=== PATIENT | male | born 1935 | race Caucasian/White ===

== ENCOUNTER 2021-03-02 23:02 | Inpatient (IN) | payer OTHER, MEDICARE ==
[2021-03-02] MEDS ORDERED: hydrALAZINE 20 MG/ML VIAL SLOW IVP PRN (23:29)
[2021-03-02] MEDS ORDERED: Ondansetron PF 4 MG/2 ML Vial IVP PRN (23:29)
[2021-03-02] MEDS ORDERED: Dextrose 5% in Water 1,000 ML IV PRN (23:29)
[2021-03-02] MEDS ORDERED: Dextrose 50% Abboject 50 ML SYRINGE SLOW IVP PRN (23:29)
[2021-03-02] MEDS ORDERED: Ondansetron ODT 4 MG TAB PO PRN (23:29)
[2021-03-02] MEDS ORDERED: traMADol HCl 50 MG TAB PO PRN (23:33)
[2021-03-02 23:35] LABS: #Eosinphils 0.1 thou/uL (0.0-0.7); #Lymphocytes 1.3 thou/uL (1.20-3.40); #Neutrophils 12.8 thou/uL (1.40-6.50); %Basophils 0.3 % (0.0-1.0); %Eosinophils 0.4 % (0.0-10.0); %Lymphocytes 8.2 % (21.0-51.0); %Monocytes 6.8 % (0.0-10.0); %Neutrophils 84.3 % (42.0-75.0); Hemoglobin 13.7 g/dL (14.0-18.0); Mean Corpuscular Volume 91.3 fL (78.0-98.0); Mean Platelet Volume 7.6 fL (7.4-10.4); Platelet Count 412 thou/uL (130-400); RBC Distribution Width 14.2 % (11.5-14.5); Red Blood Cell (RBC) Count 4.41 mill/uL (4.70-6.10); White Blood Cell (WBC) Count 15.2 thou/uL (4.8-10.8)
[2021-03-02] MEDS ORDERED: Morphine 4 MG/ML VIAL SLOW IVP PRN (23:36)
[2021-03-02 23:55] LABS: ALT (SGPT) 19 U/L (8-55); AST (SGOT) 19 U/L (5-34); Albumin 3.1 g/dL (3.4-4.8); Alkaline Phosphatase 90 U/L (40-110); Anion Gap 16 mmol/L (10-20); BUN (Urea Nitrogen) 16 mg/dL (8.4-25.7); Bilirubin, Total 0.6 mg/dL (0.2-1.2); Calc. Creatinine Clearance 0 mL/min (70-130); Calcium 9.2 mg/dL (7.8-10.44); Carbon Dioxide 23 mmol/L (23-31); Chloride 100 mmol/L (98-107); Globulin 3.2 g/dL (2.4-3.5); Glucose 144 mg/dL (83-110); Potassium 3.2 mmol/L (3.5-5.1); Protein, Total 6.3 g/dL (5.8-8.1); Sodium 136 mmol/L (136-145)
[2021-03-03] MEDS ORDERED: Morphine 4 MG/ML VIAL ONE (00:16)
[2021-03-03] MEDS ORDERED: HumaLOG 300 UNITS/3 ML VIAL SC PRN ×2 (00:51)
[2021-03-03 01:32] LABS: SARS-CoV-2 NAA Rapid Test Not Detected (NotDetected)
[2021-03-03 01:47] VITALS: BMI 29.5
[2021-03-03] MEDS: Cyclobenzaprine 10 MG TAB PO PRN ×2 (03:21→22:49)
[2021-03-03] MEDS: Sodium Chloride 0.9% 1,000 ML IV SCH ×2 (03:23→14:02)
[2021-03-03] MEDS: Acetaminophen 500 MG TAB PO SCH ×2 (03:24→04:56)
[2021-03-03] MEDS: Ibuprofen 800 MG TAB PO SCH ×3 (04:57→21:33)
[2021-03-03 05:10] LABS: #Eosinphils 0.1 thou/uL (0.0-0.7); #Lymphocytes 1.3 thou/uL (1.20-3.40); #Monocytes 0.9 thou/uL (0.11-0.59); #Neutrophils 11.9 thou/uL (1.40-6.50); %Basophils 0.1 % (0.0-1.0); %Eosinophils 0.7 % (0.0-10.0); %Lymphocytes 8.9 % (21.0-51.0); %Monocytes 6.2 % (0.0-10.0); %Neutrophils 84.1 % (42.0-75.0); Hemoglobin 13.2 g/dL (14.0-18.0); Mean Corpuscular HGB CONC 33.8 g/dL (32.0-36.0); Mean Corpuscular Hemoglobin 30.6 pg (27.0-31.0); Mean Corpuscular Volume 90.7 fL (78.0-98.0); Mean Platelet Volume 7.8 fL (7.4-10.4); Platelet Count 416 thou/uL (130-400); RBC Distribution Width 14.1 % (11.5-14.5); White Blood Cell (WBC) Count 14.1 thou/uL (4.8-10.8)
[2021-03-03] MEDS: Acetaminophen 325 MG TAB PO SCH ×4 (05:24→22:49)
[2021-03-03 05:43] LABS: Phosphorus 3.5 mg/dL (2.3-4.7)
[2021-03-03 05:47] LABS: Anion Gap 14 mmol/L (10-20); BUN (Urea Nitrogen) 15 mg/dL (8.4-25.7); Calc. Creatinine Clearance 77 mL/min (70-130); Calcium 9.1 mg/dL (7.8-10.44); Carbon Dioxide 26 mmol/L (23-31); Chloride 99 mmol/L (98-107); Glucose 132 mg/dL (83-110); Magnesium 1.8 mg/dL (1.6-2.6); Potassium 3.4 mmol/L (3.5-5.1); Sodium 136 mmol/L (136-145)
[2021-03-03] MEDS ORDERED: Magnesium Sulfate 2 GM in Sodium Chloride 0.9% 100 ML IV SCH (07:45)
[2021-03-03] MEDS ORDERED: Potassium Phosphate 30 MMOL, Magnesium Sulfate 2 GM in Sodium Chloride 0.9% 250 ML IVPB SCH (09:00)
[2021-03-03] MEDS ORDERED: Fentanyl 100 MCG/2 ML VIAL ONE ×2 (09:15→09:40)
[2021-03-03] MEDS ORDERED: Lidocaine 2% Jelly 5 ML TUBE ONE (09:36)
[2021-03-03] MEDS ORDERED: Neomycin-Polymyxin 1 ML AMP ONE (09:39)
[2021-03-03] MEDS ORDERED: CEFAZOLIN 2 GM, Admixture Fee 1 EACH in Sodium Chloride 0.9% 100 ML IVPB SCH (10:00)
[2021-03-03] MEDS ORDERED: SUGAMMADEX SODIUM 200 MG/2 ML VIAL ONE (10:57)
[2021-03-03] MEDS ORDERED: Ondansetron HCl/PF 4 MG/2 ML Vial IVP PRN (11:28)
[2021-03-03] MEDS ORDERED: Morphine Sulfate 2 MG/ML SYRINGE SLOW IVP PRN (11:28)
[2021-03-03] MEDS: Famotidine 20 MG TAB PO SCH ×2 (14:02→20:10)
[2021-03-03] MEDS ORDERED: Magnesium Sulfate 3 GM in Sodium Chloride 0.9% 100 ML IV SCH (15:15)
[2021-03-03] MEDS ORDERED: Ferrous Sulfate 325 MG TAB PO SCH (17:00)
[2021-03-03] MEDS: CEFAZOLIN 2 GM, Admixture Fee 1 EACH in Sodium Chloride 0.9% 100 ML IVPB SCH (18:23)
[2021-03-03 18:40] LABS: Anion Gap 14 mmol/L (10-20); BUN (Urea Nitrogen) 15 mg/dL (8.4-25.7); Calc. Creatinine Clearance 77 mL/min (70-130); Calcium 9.1 mg/dL (7.8-10.44); Carbon Dioxide 27 mmol/L (23-31); Chloride 101 mmol/L (98-107); Glucose 145 mg/dL (83-110); Magnesium 2.2 mg/dL (1.6-2.6); Phosphorus 4.9 mg/dL (2.3-4.7); Potassium 3.5 mmol/L (3.5-5.1); Sodium 138 mmol/L (136-145)
[2021-03-03] MEDS ORDERED: Potassium Chloride 20 MEQ in Premix Bag 1 BAG IVPB SCH (19:00)
[2021-03-03] MEDS ORDERED: Ascorbic Acid 500 mg Chewable Tablet PO SCH (21:00)
[2021-03-04] MEDS: traMADol HCl 50 MG TAB PO PRN ×2 (01:18→10:01)
[2021-03-04] MEDS: CEFAZOLIN 2 GM, Admixture Fee 1 EACH in Sodium Chloride 0.9% 100 ML IVPB SCH (03:31)
[2021-03-04 06:03] LABS: Hemoglobin 9.8 g/dL (14.0-18.0); Mean Corpuscular HGB CONC 30.4 g/dL (32.0-36.0); Mean Corpuscular Hemoglobin 27.8 pg (27.0-31.0); Mean Corpuscular Volume 91.5 fL (78.0-98.0); Mean Platelet Volume 7.7 fL (7.4-10.4); Platelet Count 334 thou/uL (130-400); RBC Distribution Width 14.5 % (11.5-14.5); Red Blood Cell (RBC) Count 3.51 mill/uL (4.70-6.10); White Blood Cell (WBC) Count 12.3 thou/uL (4.8-10.8)
[2021-03-04] MEDS: Acetaminophen 325 MG TAB PO SCH ×2 (06:11→14:37)
[2021-03-04] MEDS: Ibuprofen 800 MG TAB PO SCH ×3 (06:12→16:33)
[2021-03-04 06:24] LABS: Band 11 % (5-11); Eosinophils 2 % (0-10); Hypochromia SLIGHT = 6-15 cells (100X) (0-5/hpf); Lymphocytes 4 % (21-51); MDiff Complete? YES; Monocytes 4 % (0-10); Neutrophil 79 % (42-75); Platelet Morphology Comment Appears Adequate
[2021-03-04 06:40] LABS: Anion Gap 9 mmol/L (10-20); BUN (Urea Nitrogen) 14 mg/dL (8.4-25.7); Calc. Creatinine Clearance 78 mL/min (70-130); Calcium 8.4 mg/dL (7.8-10.44); Carbon Dioxide 30 mmol/L (23-31); Chloride 101 mmol/L (98-107); Glucose 141 mg/dL (83-110); Magnesium 2.1 mg/dL (1.6-2.6); Phosphorus 3.2 mg/dL (2.3-4.7); Potassium 3.3 mmol/L (3.5-5.1); Sodium 137 mmol/L (136-145)
[2021-03-04] MEDS ORDERED: Ferrous Sulfate 325 MG TAB PO SCH (08:00)
[2021-03-04] MEDS ORDERED: Ascorbic Acid 500 mg Chewable Tablet PO SCH (09:00)
[2021-03-04] MEDS ORDERED: Aspirin 81 mg Enteric Coated Tablet PO SCH (09:00)
[2021-03-04 09:12] LABS: #Basophils 0.1 thou/uL (0.0-0.2); #Eosinphils 0.5 thou/uL (0.0-0.7); #Monocytes 0.9 thou/uL (0.11-0.59); #Neutrophils 12.9 thou/uL (1.40-6.50); %Basophils 0.3 % (0.0-1.0); %Eosinophils 3.4 % (0.0-10.0); %Lymphocytes 6.8 % (21.0-51.0); %Monocytes 5.8 % (0.0-10.0); %Neutrophils 83.7 % (42.0-75.0); Mean Corpuscular HGB CONC 33.5 g/dL (32.0-36.0); Mean Corpuscular Hemoglobin 30.9 pg (27.0-31.0); Mean Corpuscular Volume 92.4 fL (78.0-98.0); Platelet Count 370 thou/uL (130-400); RBC Distribution Width 14.2 % (11.5-14.5); Red Blood Cell (RBC) Count 3.56 mill/uL (4.70-6.10); White Blood Cell (WBC) Count 15.4 thou/uL (4.8-10.8)
[2021-03-04] MEDS: Famotidine 20 MG TAB PO SCH (10:01)
[2021-03-04] MEDS: Potassium Chloride 40 MEQ in Sodium Chloride 0.9% 250 ML 250 ML IVPB SCH ×2 (10:02→15:09)
[2021-03-04 16:52] VITALS: BP 158/75; TEMP 97.4
== END 2021-03-04 17:47 | disposition home or self-care (01) | DRG 522 ==
LOC: ERS 23:02 → SURG A 23:29
PROVIDERS: ADMIT Specialist; ATTEND Specialist
PROC: 0SRS0JA Replacement of Left Hip Joint, Femoral Surface with Synthetic Substitute, Uncemented, Open Approach (ICD-10-PCS; principal; 2021-03-03)
DX: S72.002A Fracture of unspecified part of neck of left femur, initial encounter for closed fracture (principal); W19.XXXA Unspecified fall, initial encounter; E78.5 Hyperlipidemia, unspecified; I10 Essential (primary) hypertension; E11.9 Type 2 diabetes mellitus without complications; F03.90 Unspecified dementia, unspecified severity, without behavioral disturbance, psychotic disturbance, mood disturbance, and anxiety; D72.829 Elevated white blood cell count, unspecified; Z20.822 Contact with and (suspected) exposure to COVID-19; Y92.89 Other specified places as the place of occurrence of the external cause; Z79.84 Long term (current) use of oral hypoglycemic drugs; Z79.899 Other long term (current) drug therapy; Z87.891 Personal history of nicotine dependence
CPT/HCPCS: 36415; 36416; 71045; 72170; 80048; 80053; 83735; 84100; 85025; 93005; 93010; 96374; C1776; G0390; J0690; J2270; J3010; J3475; J3480; J3490; J7030; J7050; U0002

== ENCOUNTER 2021-03-09 16:21 | Inpatient (IN) | payer MEDICARE ==
[~2021-03-09 16:21] MED LIST: Iopamidol-370 76% 500 ML 1 ML ONE
[2021-03-09 17:26] LABS: #Eosinphils 0.2 thou/uL (0.0-0.7); #Lymphocytes 1.2 thou/uL (1.20-3.40); #Monocytes 1.4 thou/uL (0.11-0.59); #Neutrophils 9.9 thou/uL (1.40-6.50); %Basophils 0.1 % (0.0-1.0); %Eosinophils 1.7 % (0.0-10.0); %Lymphocytes 9.2 % (21.0-51.0); %Monocytes 10.9 % (0.0-10.0); %Neutrophils 78.2 % (42.0-75.0); Hemoglobin 11.4 g/dL (14.0-18.0); Mean Corpuscular HGB CONC 33.1 g/dL (32.0-36.0); Mean Corpuscular Hemoglobin 30.3 pg (27.0-31.0); Mean Corpuscular Volume 91.6 fL (78.0-98.0); Mean Platelet Volume 7.3 fL (7.4-10.4); Platelet Count 530 thou/uL (130-400); RBC Distribution Width 14.7 % (11.5-14.5); Red Blood Cell (RBC) Count 3.77 mill/uL (4.70-6.10); White Blood Cell (WBC) Count 12.6 thou/uL (4.8-10.8)
[2021-03-09 17:48] LABS: ALT (SGPT) 10 U/L (8-55); AST (SGOT) 23 U/L (5-34); Albumin 2.6 g/dL (3.4-4.8); Alkaline Phosphatase 108 U/L (40-110); Anion Gap 15 mmol/L (10-20); BUN (Urea Nitrogen) 24 mg/dL (8.4-25.7); Bilirubin, Total 1.5 mg/dL (0.2-1.2); Calc. Creatinine Clearance 0 mL/min (70-130); Calcium 8.8 mg/dL (7.8-10.44); Carbon Dioxide 29 mmol/L (23-31); Chloride 97 mmol/L (98-107); Globulin 3.1 g/dL (2.4-3.5); Glucose 114 mg/dL (83-110); Potassium 4.5 mmol/L (3.5-5.1); Protein, Total 5.7 g/dL (5.8-8.1); Sodium 136 mmol/L (136-145)
[2021-03-09] MEDS ORDERED: Ondansetron PF 4 MG/2 ML Vial IVP PRN (19:47)
[2021-03-09] MEDS ORDERED: Dextrose 5% in Water 1,000 ML IV PRN (19:52)
[2021-03-09] MEDS ORDERED: Dextrose 50% Abboject 50 ML SYRINGE SLOW IVP PRN (19:52)
[2021-03-09] MEDS ORDERED: HumaLOG 300 UNITS/3 ML VIAL SC PRN ×2 (19:52)
[2021-03-09] MEDS ORDERED: Acetaminophen 325 MG TAB ONE (20:21)
[2021-03-10 00:35] VITALS: BMI 35.2
[2021-03-10 05:35] LABS: #Eosinphils 0.4 thou/uL (0.0-0.7); #Lymphocytes 1.1 thou/uL (1.20-3.40); #Monocytes 1.2 thou/uL (0.11-0.59); #Neutrophils 8.2 thou/uL (1.40-6.50); %Basophils 0.2 % (0.0-1.0); %Eosinophils 3.3 % (0.0-10.0); %Lymphocytes 10.1 % (21.0-51.0); %Monocytes 11.4 % (0.0-10.0); Hemoglobin 10.7 g/dL (14.0-18.0); Mean Corpuscular HGB CONC 33.5 g/dL (32.0-36.0); Mean Corpuscular Hemoglobin 30.9 pg (27.0-31.0); Mean Corpuscular Volume 92.3 fL (78.0-98.0); Mean Platelet Volume 7.1 fL (7.4-10.4); Platelet Count 521 thou/uL (130-400); RBC Distribution Width 14.7 % (11.5-14.5); Red Blood Cell (RBC) Count 3.46 mill/uL (4.70-6.10); White Blood Cell (WBC) Count 10.9 thou/uL (4.8-10.8)
[2021-03-10 05:57] LABS: Anion Gap 11 mmol/L (10-20); BUN (Urea Nitrogen) 24 mg/dL (8.4-25.7); Calc. Creatinine Clearance 100 mL/min (70-130); Calcium 9.2 mg/dL (7.8-10.44); Carbon Dioxide 30 mmol/L (23-31); Chloride 98 mmol/L (98-107); Glucose 105 mg/dL (83-110); Magnesium 2.3 mg/dL (1.6-2.6); Potassium 3.6 mmol/L (3.5-5.1); Sodium 135 mmol/L (136-145)
[2021-03-10] MEDS ORDERED: Cyclobenzaprine 10 MG TAB PO PRN (09:57)
[2021-03-10] MEDS ORDERED: Acetaminophen 325 MG TAB PO PRN (09:57)
[2021-03-10] MEDS ORDERED: Bumetanide 1 MG TAB PO SCH (10:45)
[2021-03-10] MEDS ORDERED: Folic Acid 1 MG TAB PO SCH (10:45)
[2021-03-10] MEDS ORDERED: Terazosin HCl 5 MG CAP PO SCH (10:45)
[2021-03-10] MEDS: Acetaminophen 325 MG TAB PO PRN ×2 (11:24→20:10)
[2021-03-10 12:19] LABS: SARS-CoV-2 PCR by NAA Not Detected (NotDetected)
[2021-03-10] MEDS: Donepezil HCl 10 MG TAB PO SCH (20:10)
[2021-03-11] MEDS ORDERED: ceFAZolin Sodium/D5W 2 GM in Premix Bag 1 BAG IVPB SCH (01:00)
[2021-03-11 05:36] LABS: #Basophils 0.1 thou/uL (0.0-0.2); #Eosinphils 0.6 thou/uL (0.0-0.7); #Lymphocytes 0.9 thou/uL (1.20-3.40); #Monocytes 1.2 thou/uL (0.11-0.59); #Neutrophils 8.6 thou/uL (1.40-6.50); %Basophils 0.7 % (0.0-1.0); %Eosinophils 5.3 % (0.0-10.0); %Lymphocytes 7.9 % (21.0-51.0); %Monocytes 10.8 % (0.0-10.0); %Neutrophils 75.4 % (42.0-75.0); Mean Corpuscular HGB CONC 31.5 g/dL (32.0-36.0); Mean Corpuscular Hemoglobin 29.8 pg (27.0-31.0); Mean Corpuscular Volume 94.7 fL (78.0-98.0); Mean Platelet Volume 7.5 fL (7.4-10.4); Platelet Count 519 thou/uL (130-400); RBC Distribution Width 15.2 % (11.5-14.5); Red Blood Cell (RBC) Count 3.68 mill/uL (4.70-6.10); White Blood Cell (WBC) Count 11.4 thou/uL (4.8-10.8)
[2021-03-11 05:59] LABS: Anion Gap 14 mmol/L (10-20); Calcium 8.7 mg/dL (7.8-10.44); Carbon Dioxide 24 mmol/L (23-31); Chloride 98 mmol/L (98-107); Potassium 3.9 mmol/L (3.5-5.1); Sodium 132 mmol/L (136-145)
[2021-03-11 06:03] LABS: Glucose 117 mg/dL (83-110)
[2021-03-11 06:06] LABS: Calc. Creatinine Clearance 106 mL/min (70-130)
[2021-03-11 06:07] LABS: BUN (Urea Nitrogen) 23 mg/dL (8.4-25.7)
[2021-03-11] MEDS ORDERED: Sodium Chloride 0.9% 1,000 ML IV SCH (08:00)
[2021-03-11] MEDS: Terazosin HCl 5 MG CAP PO SCH (09:10)
[2021-03-11] MEDS: Folic Acid 1 MG TAB PO SCH (09:10)
[2021-03-11] MEDS: Bumetanide 1 MG TAB PO SCH (09:10)
[2021-03-11] MEDS ORDERED: Lidocaine 1% (PF) 30 ML VIAL ONE ×4 (11:17→12:46)
[2021-03-11] MEDS ORDERED: Gentamicin 80 MG/2 ML VIAL ONE (11:17)
[2021-03-11] MEDS ORDERED: CEFAZOLIN 1 GM VIAL ONE (11:17)
[2021-03-11] MEDS ORDERED: ceFAZolin 2 GM/DEX 5% 100 ML BAG ONE (11:26)
[2021-03-11] MEDS ORDERED: Iopamidol 370 76% 50 ML VIAL FS ONE (11:57)
[2021-03-11] MEDS ORDERED: Fentanyl 100 MCG/2 ML VIAL ONE (12:26)
[2021-03-11] MEDS ORDERED: Midazolam HCl 2 mg/2 ml Vial ONE (12:26)
[2021-03-11] MEDS: Acetaminophen 325 MG TAB PO PRN (15:12)
[2021-03-11] MEDS: Cephalexin 250 MG CAP PO SCH ×2 (15:12→20:29)
[2021-03-11] MEDS: Donepezil HCl 10 MG TAB PO SCH (20:29)
[2021-03-11] MEDS ORDERED: Atorvastatin Calcium 40 MG TAB PO SCH (21:00)
[2021-03-12 05:39] LABS: #Eosinphils 0.5 thou/uL (0.0-0.7); #Lymphocytes 1.2 thou/uL (1.20-3.40); #Monocytes 1.1 thou/uL (0.11-0.59); #Neutrophils 8.4 thou/uL (1.40-6.50); %Basophils 0.4 % (0.0-1.0); %Eosinophils 4.8 % (0.0-10.0); %Lymphocytes 10.7 % (21.0-51.0); %Monocytes 9.9 % (0.0-10.0); %Neutrophils 74.2 % (42.0-75.0); Hemoglobin 10.7 g/dL (14.0-18.0); Mean Corpuscular HGB CONC 33.5 g/dL (32.0-36.0); Mean Corpuscular Hemoglobin 30.5 pg (27.0-31.0); Mean Corpuscular Volume 91.1 fL (78.0-98.0); Mean Platelet Volume 7.1 fL (7.4-10.4); Platelet Count 482 thou/uL (130-400); RBC Distribution Width 15.3 % (11.5-14.5); White Blood Cell (WBC) Count 11.3 thou/uL (4.8-10.8)
[2021-03-12 05:58] LABS: Anion Gap 11 mmol/L (10-20); BUN (Urea Nitrogen) 23 mg/dL (8.4-25.7); Calc. Creatinine Clearance 100 mL/min (70-130); Calcium 8.8 mg/dL (7.8-10.44); Carbon Dioxide 30 mmol/L (23-31); Chloride 94 mmol/L (98-107); Glucose 127 mg/dL (83-110); Potassium 3.2 mmol/L (3.5-5.1); Sodium 132 mmol/L (136-145)
[2021-03-12 08:07] VITALS: BP 136/63; TEMP 97.9
[2021-03-12] MEDS: Bumetanide 1 MG TAB PO SCH (08:24)
[2021-03-12] MEDS: Cephalexin 250 MG CAP PO SCH (08:24)
[2021-03-12] MEDS: Terazosin HCl 5 MG CAP PO SCH (08:25)
[2021-03-12] MEDS: Folic Acid 1 MG TAB PO SCH (08:25)
[2021-03-12] MEDS ORDERED: Potassium Chloride 20 MEQ TAB PO SCH (09:15)
== END 2021-03-12 12:20 | disposition home or self-care (01) | DRG 242 ==
LOC: ERS 16:21 → 2SE 20:04 → 2SW 03-11 13:00
PROVIDERS: ADMIT Internal Medicine; ATTEND Internal Medicine
PROC: 0JH606Z Insertion of Pacemaker, Dual Chamber into Chest Subcutaneous Tissue and Fascia, Open Approach (ICD-10-PCS; principal; 2021-03-11)
PROC: 02H63JZ Insertion of Pacemaker Lead into Right Atrium, Percutaneous Approach (ICD-10-PCS; 2021-03-11)
PROC: 02HK3JZ Insertion of Pacemaker Lead into Right Ventricle, Percutaneous Approach (ICD-10-PCS; 2021-03-11)
DX: I44.1 Atrioventricular block, second degree (principal); J15.6 Pneumonia due to other Gram-negative bacteria; I50.32 Chronic diastolic (congestive) heart failure; Z20.822 Contact with and (suspected) exposure to COVID-19; Z96.642 Presence of left artificial hip joint; N28.89 Other specified disorders of kidney and ureter; I11.0 Hypertensive heart disease with heart failure; E78.5 Hyperlipidemia, unspecified; E11.9 Type 2 diabetes mellitus without complications; F03.90 Unspecified dementia, unspecified severity, without behavioral disturbance, psychotic disturbance, mood disturbance, and anxiety; Z79.84 Long term (current) use of oral hypoglycemic drugs; Z79.899 Other long term (current) drug therapy; Z87.891 Personal history of nicotine dependence; Z91.81 History of falling
CPT/HCPCS: 33208; 36415; 36416; 71045; 71275; 80048; 80053; 83735; 84443; 84484; 85025; 93005; 93010; 93306; 99152; 99153; J0690; J1580; J2001; J2250; J3010; J7050; Q9967; U0003; U0005

== ENCOUNTER 2021-04-19 11:41 | Inpatient (IN) | payer MEDICARE ==
[2021-04-19 12:14] LABS: Hemoglobin 13.8 g/dL (14.0-18.0); Mean Corpuscular HGB CONC 32.8 g/dL (32.0-36.0); Mean Corpuscular Hemoglobin 29.3 pg (27.0-31.0); Mean Corpuscular Volume 89.5 fL (78.0-98.0); Mean Platelet Volume 8.2 fL (7.4-10.4); Platelet Count 538 thou/uL (130-400); RBC Distribution Width 16.1 % (11.5-14.5); Red Blood Cell (RBC) Count 4.72 mill/uL (4.70-6.10); White Blood Cell (WBC) Count 25.5 thou/uL (4.8-10.8)
[2021-04-19 12:32] LABS: Band 5 % (5-11); Lymphocytes 5 % (21-51); MDiff Complete? YES; Monocytes 5 % (0-10); Neutrophil 84 % (42-75); Platelet Morphology Comment Appears Increased; Polychromasia SLIGHT = 2-3 cells (100X) (0-2/hpf); Reactive Lymphocytes 1 % (0-10); Vacuoles SLIGHT
[2021-04-19 12:34] LABS: INR-International Normal Ratio 1.2; PTT 31.4 sec (22.9-36.1)
[2021-04-19 12:51] LABS: Prothrombin Time 15.5 sec (12.0-14.7)
[2021-04-19] MEDS ORDERED: Pantoprazole 40 MG VIAL ONE (12:52)
[2021-04-19 13:16] LABS: CKMB 2.9 ng/mL (0-6.6)
[2021-04-19] MEDS ORDERED: cefTRIAXone\\ROCEPHIN 2 GM VIAL ONE (13:34)
[2021-04-19 13:36] LABS: ALT (SGPT) 17 U/L (8-55); AST (SGOT) 27 U/L (5-34); Albumin 2.2 g/dL (3.4-4.8); Alkaline Phosphatase 146 U/L (40-110); Anion Gap 34 mmol/L (10-20); BUN (Urea Nitrogen) 90 mg/dL (8.4-25.7); Calc. Creatinine Clearance 0 mL/min (70-130); Calcium 8.9 mg/dL (7.8-10.44); Carbon Dioxide 13 mmol/L (23-31); Chloride 87 mmol/L (98-107); Globulin 4.2 g/dL (2.4-3.5); Glucose 145 mg/dL (83-110); Potassium 5.2 mmol/L (3.5-5.1); Protein, Total 6.4 g/dL (5.8-8.1); Sodium 129 mmol/L (136-145)
[2021-04-19] MEDS ORDERED: Lidocaine 4% Cream 5 GM TUBE w/ Tegaderm ONE (15:13)
[2021-04-19 17:21] LABS: Troponin I 0.068 ng/mL (< 0.028)
[2021-04-19] MEDS ORDERED: Aspirin 300 MG Suppository ONE (18:37)
[2021-04-19 18:44] LABS: Bacteria/HPF None Seen HPF (None Seen); Bilirubin Negative (Negative); Blood, Urine Trace (Negative); Clarity Clear (Clear); Glucose, Urine (Dipstick) Normal (Negative); Ketone, Urine Negative (Negative); Leukocyte Negative Leu/uL (Negative); Nitrite Negative (Negative); Protein, Urine (Dipstick) Negative (Neg-Trace); RBC/HPF 0-3 HPF (0-3); Specific Gravity, Urine 1.012 (1.002-1.036); Squamous Epithelial None Seen HPF (0-3); Urobilinogen Normal mg/dL (Less than 2); WBC/HPF 0-3 HPF (0-3)
[2021-04-19 20:26] LABS: Troponin I 0.063 ng/mL (< 0.028)
[2021-04-19 23:26] LABS: #Eosinphils 0.1 thou/uL (0.0-0.7); #Monocytes 0.8 thou/uL (0.11-0.59); #Neutrophils 17.9 thou/uL (1.40-6.50); %Basophils 0.1 % (0.0-1.0); %Eosinophils 0.3 % (0.0-10.0); %Lymphocytes 4.9 % (21.0-51.0); %Monocytes 3.9 % (0.0-10.0); %Neutrophils 90.8 % (42.0-75.0); Hemoglobin 9.8 g/dL (14.0-18.0); Mean Corpuscular HGB CONC 29.9 g/dL (32.0-36.0); Mean Corpuscular Hemoglobin 29.1 pg (27.0-31.0); Mean Corpuscular Volume 97.2 fL (78.0-98.0); Mean Platelet Volume 8.3 fL (7.4-10.4); Platelet Count 317 thou/uL (130-400); RBC Distribution Width 15.9 % (11.5-14.5); Red Blood Cell (RBC) Count 3.38 mill/uL (4.70-6.10); White Blood Cell (WBC) Count 19.7 thou/uL (4.8-10.8)
[2021-04-19 23:35] LABS: Anion Gap 31 mmol/L (10-20); BUN (Urea Nitrogen) 99 mg/dL (8.4-25.7); Calc. Creatinine Clearance 0 mL/min (70-130); Calcium 8.8 mg/dL (7.8-10.44); Carbon Dioxide 15 mmol/L (23-31); Chloride 88 mmol/L (98-107); Glucose 118 mg/dL (83-110); Potassium 4.7 mmol/L (3.5-5.1); Sodium 129 mmol/L (136-145)
[2021-04-20] MEDS ORDERED: Acetaminophen 325 MG TAB PO PRN (02:15)
[2021-04-20] MEDS ORDERED: Ondansetron PF 4 MG/2 ML Vial IVP PRN (02:15)
[2021-04-20] MEDS ORDERED: HumaLOG 300 UNITS/3 ML VIAL SC PRN (02:21)
[2021-04-20] MEDS ORDERED: Dextrose 50% Abboject 50 ML SYRINGE SLOW IVP PRN (02:21)
[2021-04-20] MEDS ORDERED: Dextrose 5% in Water 1,000 ML IV PRN (02:21)
[2021-04-20] MEDS ORDERED: Sodium Chloride 0.9% 1,000 ML IV SCH (02:30)
[2021-04-20] MEDS ORDERED: Pantoprazole 40 MG VIAL ONE (02:40)
[2021-04-20] MEDS: Pantoprazole 40 MG VIAL IVP SCH ×2 (02:43→16:15)
[2021-04-20] MEDS ORDERED: VANCOMYCIN 2 GRAM/400 ML BAG 2 GM in Premix Bag 1 BAG IVPB SCH (03:00)
[2021-04-20 05:32] LABS: Anion Gap 28 mmol/L (10-20); BUN (Urea Nitrogen) 106 mg/dL (8.4-25.7); CRP (Inflammatory) 3.85 mg/dL (= or < 0.5); Calc. Creatinine Clearance 0 mL/min (70-130); Calcium 8.9 mg/dL (7.8-10.44); Carbon Dioxide 20 mmol/L (23-31); Chloride 87 mmol/L (98-107); Glucose 132 mg/dL (83-110); Potassium 4.7 mmol/L (3.5-5.1); Sodium 130 mmol/L (136-145)
[2021-04-20 05:47] LABS: Band 4 % (5-11); Hemoglobin 13.3 g/dL (14.0-18.0); Lymphocytes 3 % (21-51); MDiff Complete? YES; Mean Corpuscular Hemoglobin 29.9 pg (27.0-31.0); Mean Corpuscular Volume 90.4 fL (78.0-98.0); Mean Platelet Volume 8.3 fL (7.4-10.4); Monocytes 4 % (0-10); Neutrophil 89 % (42-75); Platelet Count 416 thou/uL (130-400); Platelet Morphology Comment Appears Increased; RBC Distribution Width 16.1 % (11.5-14.5); RBC Morphology Normal; Red Blood Cell (RBC) Count 4.44 mill/uL (4.70-6.10); White Blood Cell (WBC) Count 23.9 thou/uL (4.8-10.8)
[2021-04-20] MEDS ORDERED: Cyclobenzaprine 10 MG TAB PO PRN (08:50)
[2021-04-20 10:37] LABS: Creatinine, Urine 50.07 mg/dL (63-166); Protein, Urine Random Quant Less than 10 mg/dL (1-14); Sodium, Urine Less than 20 mmol/L (Not Available); Urea Nitrogen, Random Urine 474 mg/dl
[2021-04-20] MEDS ORDERED: Cefepime 1 GM VIAL ONE (11:09)
[2021-04-20] MEDS ORDERED: Ascorbic Acid 500 mg Chewable Tablet ONE (11:09)
[2021-04-20] MEDS ORDERED: Zinc Sulfate 220 MG CAP ONE (11:14)
[2021-04-20] MEDS: FLUoxetine HCl 10 MG CAP PO SCH (11:15)
[2021-04-20] MEDS: Zinc Sulfate 220 MG CAP PO SCH (11:15)
[2021-04-20] MEDS: Cefepime 1 GM in Sodium Chloride 0.9% 100 ML IVPB SCH ×2 (11:18→21:14)
[2021-04-20] MEDS: Dexamethasone 10 MG/ML VIAL SLOW IVP SCH (11:18)
[2021-04-20] MEDS: Ascorbic Acid 500 mg Chewable Tablet PO SCH (11:18)
[2021-04-20] MEDS: Sodium Chloride 0.9% 1,000 ML IV SCH ×2 (11:53→22:42)
[2021-04-20 12:26] LABS: Hemoglobin 13.1 g/dL (14.0-18.0)
[2021-04-20 15:56] LABS: Anion Gap 23 mmol/L (10-20); BUN (Urea Nitrogen) 108 mg/dL (8.4-25.7); Calc. Creatinine Clearance 28 mL/min (70-130); Calcium 8.6 mg/dL (7.8-10.44); Carbon Dioxide 22 mmol/L (23-31); Chloride 90 mmol/L (98-107); Glucose 154 mg/dL (83-110); Potassium 4.2 mmol/L (3.5-5.1); Sodium 131 mmol/L (136-145)
[2021-04-20] MEDS: Albumin 25% 25 GM/100 ML BOT IVPB SCH ×2 (16:15→22:15)
[2021-04-20] MEDS: Atorvastatin Calcium 40 MG TAB PO SCH (21:24)
[2021-04-20] MEDS: Donepezil HCl 10 MG TAB PO SCH (21:24)
[2021-04-20] MEDS: Terazosin HCl 5 MG CAP PO SCH (21:25)
[2021-04-21] MEDS: Sodium Chloride 0.9% 1,000 ML IV SCH ×3 (02:17→19:57)
[2021-04-21] MEDS: Pantoprazole 40 MG VIAL IVP SCH ×2 (02:25→15:23)
[2021-04-21] MEDS ORDERED: Vancomycin HCl 500 MG in Sodium Chloride 0.9% 100 ML IV SCH (03:00)
[2021-04-21 07:06] LABS: Anion Gap 19 mmol/L (10-20); BUN (Urea Nitrogen) 100 mg/dL (8.4-25.7); CRP (Inflammatory) 2.23 mg/dL (= or < 0.5); Calc. Creatinine Clearance 34 mL/min (70-130); Calcium 8.8 mg/dL (7.8-10.44); Carbon Dioxide 26 mmol/L (23-31); Chloride 92 mmol/L (98-107); Glucose 117 mg/dL (83-110); Potassium 3.1 mmol/L (3.5-5.1); Sodium 134 mmol/L (136-145)
[2021-04-21 07:10] LABS: Hemoglobin 11.4 g/dL (14.0-18.0); Mean Corpuscular HGB CONC 33.6 g/dL (32.0-36.0); Mean Corpuscular Volume 89.3 fL (78.0-98.0); Mean Platelet Volume 8.2 fL (7.4-10.4); Platelet Count 339 thou/uL (130-400); RBC Distribution Width 15.8 % (11.5-14.5); Red Blood Cell (RBC) Count 3.81 mill/uL (4.70-6.10); White Blood Cell (WBC) Count 18.2 thou/uL (4.8-10.8)
[2021-04-21 08:28] LABS: Band 4 % (5-11); Lymphocytes 6 % (21-51); MDiff Complete? YES; Monocytes 4 % (0-10); Neutrophil 86 % (42-75); Platelet Morphology Comment Appears Adequate; Polychromasia SLIGHT = 2-3 cells (100X) (0-2/hpf)
[2021-04-21] MEDS ORDERED: Potassium Chloride 20 MEQ TAB PO SCH (08:45)
[2021-04-21] MEDS: Dexamethasone 10 MG/ML VIAL SLOW IVP SCH (08:52)
[2021-04-21] MEDS: Cefepime 1 GM in Sodium Chloride 0.9% 100 ML IVPB SCH ×2 (08:55→19:57)
[2021-04-21] MEDS: Ascorbic Acid 500 mg Chewable Tablet PO SCH (10:44)
[2021-04-21] MEDS: FLUoxetine HCl 10 MG CAP PO SCH (10:44)
[2021-04-21] MEDS: Zinc Sulfate 220 MG CAP PO SCH (10:45)
[2021-04-21] MEDS: Atorvastatin Calcium 40 MG TAB PO SCH (19:57)
[2021-04-21] MEDS: Terazosin HCl 5 MG CAP PO SCH (19:58)
[2021-04-21] MEDS: Donepezil HCl 10 MG TAB PO SCH (19:58)
[2021-04-22] MEDS: Pantoprazole 40 MG VIAL IVP SCH ×2 (02:40→16:18)
[2021-04-22] MEDS: Sodium Chloride 0.9% 1,000 ML IV SCH (03:46)
[2021-04-22 07:01] LABS: Albumin 2.5 g/dL (3.4-4.8); Anion Gap 21 mmol/L (10-20); BUN (Urea Nitrogen) 84 mg/dL (8.4-25.7); BUN/Creatinine Ratio 52.83; CRP (Inflammatory) 4.53 mg/dL (= or < 0.5); Calc. Creatinine Clearance 46 mL/min (70-130); Calcium 8.4 mg/dL (7.8-10.44); Carbon Dioxide 22 mmol/L (23-31); Chloride 100 mmol/L (98-107); Glucose 130 mg/dL (83-110); Magnesium 2.1 mg/dL (1.6-2.6); Phosphorus 2.7 mg/dL (2.3-4.7); Sodium 140 mmol/L (136-145)
[2021-04-22 07:05] LABS: Potassium 2.8 mmol/L (3.5-5.1)
[2021-04-22 07:09] LABS: Hemoglobin 13.2 g/dL (14.0-18.0); Mean Corpuscular HGB CONC 32.3 g/dL (32.0-36.0); Mean Corpuscular Hemoglobin 28.9 pg (27.0-31.0); Mean Corpuscular Volume 89.6 fL (78.0-98.0); Mean Platelet Volume 8.5 fL (7.4-10.4); Platelet Count 347 thou/uL (130-400); Red Blood Cell (RBC) Count 4.57 mill/uL (4.70-6.10); White Blood Cell (WBC) Count 27.6 thou/uL (4.8-10.8)
[2021-04-22] MEDS ORDERED: Potassium Chloride 20 MEQ TAB PO SCH (07:30)
[2021-04-22] MEDS ORDERED: Potassium Phosphate 30 MMOL in Sodium Chloride 0.9% 250 ML 250 ML IVPB SCH (07:30)
[2021-04-22 08:55] LABS: Band 9 % (5-11); Lymphocytes 3 % (21-51); MDiff Complete? YES; Monocytes 4 % (0-10); Neutrophil 84 % (42-75); Platelet Morphology Comment Appears Adequate; RBC Morphology Normal
[2021-04-22] MEDS: Lactated Ringer's 1,000 ML IV SCH ×3 (09:09→19:35)
[2021-04-22] MEDS: Ascorbic Acid 500 mg Chewable Tablet PO SCH (09:10)
[2021-04-22] MEDS: Cefepime 1 GM in Sodium Chloride 0.9% 100 ML IVPB SCH (09:10)
[2021-04-22] MEDS: FLUoxetine HCl 10 MG CAP PO SCH (09:11)
[2021-04-22] MEDS: Dexamethasone 10 MG/ML VIAL SLOW IVP SCH (09:11)
[2021-04-22] MEDS: Zinc Sulfate 220 MG CAP PO SCH (09:12)
[2021-04-22 11:39] LABS: Vancomycin, Random 11.2 ug/mL (See Comment)
[2021-04-22] MEDS: Terazosin HCl 5 MG CAP PO SCH (19:58)
[2021-04-22] MEDS: Donepezil HCl 10 MG TAB PO SCH (19:58)
[2021-04-22] MEDS: Atorvastatin Calcium 40 MG TAB PO SCH (19:58)
[2021-04-22] MEDS: Cefepime 2 GM in Sodium Chloride 0.9% 100 ML IVPB SCH (19:59)
[2021-04-23] MEDS: Pantoprazole 40 MG VIAL IVP SCH ×2 (03:17→17:15)
[2021-04-23] MEDS: Lactated Ringer's 1,000 ML IV SCH ×2 (05:36→19:29)
[2021-04-23 06:33] LABS: Albumin 2.3 g/dL (3.4-4.8); Anion Gap 20 mmol/L (10-20); BUN (Urea Nitrogen) 86 mg/dL (8.4-25.7); BUN/Creatinine Ratio 49.43; Calc. Creatinine Clearance 42 mL/min (70-130); Calcium 8.1 mg/dL (7.8-10.44); Carbon Dioxide 21 mmol/L (23-31); Chloride 103 mmol/L (98-107); Glucose 153 mg/dL (83-110); Magnesium 1.9 mg/dL (1.6-2.6); Phosphorus 4.3 mg/dL (2.3-4.7); Potassium 3.3 mmol/L (3.5-5.1); Sodium 141 mmol/L (136-145)
[2021-04-23] MEDS ORDERED: Potassium Chloride 20 MEQ TAB PO SCH (08:15)
[2021-04-23] MEDS ORDERED: Magnesium 2 GM/50 ML 2 GM in Premix Bag 1 BAG IVPB SCH (08:45)
[2021-04-23] MEDS ORDERED: D5W-AA 4.25% with LYTES 1,000 ML BAG IV SCH (09:45)
[2021-04-23] MEDS ORDERED: Amino Acids 4.25 %/Dextrose 5% 1,000 ML IV SCH (10:00)
[2021-04-23] MEDS: Ascorbic Acid 500 mg Chewable Tablet PO SCH (10:05)
[2021-04-23] MEDS: Zinc Sulfate 220 MG CAP PO SCH (10:06)
[2021-04-23] MEDS: FLUoxetine HCl 10 MG CAP PO SCH (10:06)
[2021-04-23] MEDS: Dexamethasone 10 MG/ML VIAL SLOW IVP SCH (10:16)
[2021-04-23] MEDS: Cefepime 2 GM in Sodium Chloride 0.9% 100 ML IVPB SCH ×2 (11:27→20:17)
[2021-04-23] MEDS: Vancomycin 1 GM in Premix Bag 1 BAG IVPB SCH (12:26)
[2021-04-23] MEDS: D5W-AA 4.25% with LYTES 1,000 ML IV SCH (15:14)
[2021-04-23] MEDS: Terazosin HCl 5 MG CAP PO SCH (20:17)
[2021-04-23] MEDS: Atorvastatin Calcium 40 MG TAB PO SCH (20:17)
[2021-04-23] MEDS: Donepezil HCl 10 MG TAB PO SCH (20:17)
[2021-04-24] MEDS ORDERED: Acetaminophen 650 MG Suppository PR SCH (02:15)
[2021-04-24] MEDS: Pantoprazole 40 MG VIAL IVP SCH ×2 (02:32→15:06)
[2021-04-24] MEDS: Lactated Ringer's 1,000 ML IV SCH ×2 (02:51→18:21)
[2021-04-24 08:18] LABS: Albumin 1.9 g/dL (3.4-4.8); Anion Gap 23 mmol/L (10-20); BUN (Urea Nitrogen) 88 mg/dL (8.4-25.7); BUN/Creatinine Ratio 49.72; Calc. Creatinine Clearance 41 mL/min (70-130); Calcium 7.7 mg/dL (7.8-10.44); Carbon Dioxide 17 mmol/L (23-31); Chloride 105 mmol/L (98-107); Glucose 174 mg/dL (83-110); Magnesium 2.1 mg/dL (1.6-2.6); Phosphorus 3.9 mg/dL (2.3-4.7); Potassium 3.6 mmol/L (3.5-5.1); Sodium 141 mmol/L (136-145)
[2021-04-24 10:49] LABS: Band 17 % (5-11); Burr Cells SLIGHT = 2-5 cells (100X) (0-1/hpf); Hemoglobin 11.9 g/dL (14.0-18.0); Hypochromia SLIGHT = 6-15 cells (100X) (0-5/hpf); Lymphocytes 1 % (21-51); MDiff Complete? YES; Mean Corpuscular HGB CONC 29.6 g/dL (32.0-36.0); Mean Corpuscular Hemoglobin 27.9 pg (27.0-31.0); Mean Corpuscular Volume 94.4 fL (78.0-98.0); Mean Platelet Volume 9.5 fL (7.4-10.4); Metamyelocyte 1 % (0-0); Monocytes 1 % (0-10); Neutrophil 80 % (42-75); Nucleated RBC 1 % (0); Ovalocytes SLIGHT = 2-5 cells (100X) (0-1/hpf); Platelet Count 230 thou/uL (130-400); Platelet Morphology Comment Appears Adequate; Polychromasia MODERATE = 3-4 cells (100X) (0-2/hpf); RBC Distribution Width 16.3 % (11.5-14.5); Red Blood Cell (RBC) Count 4.27 mill/uL (4.70-6.10); White Blood Cell (WBC) Count 34.9 thou/uL (4.8-10.8)
[2021-04-24] MEDS: D5W-AA 4.25% with LYTES 1,000 ML IV SCH (10:57)
[2021-04-24] MEDS: Ascorbic Acid 500 mg Chewable Tablet PO SCH (10:59)
[2021-04-24] MEDS: Dexamethasone 10 MG/ML VIAL SLOW IVP SCH (11:01)
[2021-04-24] MEDS: FLUoxetine HCl 10 MG CAP PO SCH (11:04)
[2021-04-24] MEDS: Zinc Sulfate 220 MG CAP PO SCH (11:05)
[2021-04-24 12:50] LABS: Vancomycin, Trough 16.6 ug/mL
[2021-04-24] MEDS ORDERED: Sodium Bicarbonate 150 MEQ in Dextrose 5% in Water 1,000 ML IV SCH (13:30)
[2021-04-24] MEDS: Vancomycin 1 GM in Premix Bag 1 BAG IVPB SCH (15:32)
[2021-04-24] MEDS ORDERED: Cefepime 2 GM in Sodium Chloride 0.9% 100 ML IVPB SCH (16:00)
[2021-04-24] MEDS: Cefepime 2 GM in Sodium Chloride 0.9% 100 ML IVPB SCH (17:00)
[2021-04-24] MEDS ORDERED: Mineral Oil ENEMA PR SCH ×2 (18:30→20:00)
[2021-04-24] MEDS: Terazosin HCl 5 MG CAP PO SCH (21:08)
[2021-04-24] MEDS: Atorvastatin Calcium 40 MG TAB PO SCH (21:08)
[2021-04-24] MEDS: Bisacodyl 10 MG SUPP PR SCH (21:08)
[2021-04-24] MEDS: Donepezil HCl 10 MG TAB PO SCH (21:08)
[2021-04-24] MEDS ORDERED: Meropenem 1 GM in Sodium Chloride 0.9% 100 ML IVPB SCH ×2 (23:15→23:59)
[2021-04-25] MEDS ORDERED: Acetaminophen 650 MG Suppository PR SCH (00:15)
[2021-04-25] MEDS: Pantoprazole 40 MG VIAL IVP SCH ×2 (01:45→15:23)
[2021-04-25 06:14] LABS: Band 9 % (5-11); Hemoglobin 11.5 g/dL (14.0-18.0); Hypochromia SLIGHT = 6-15 cells (100X) (0-5/hpf); Lymphocytes 9 % (21-51); MDiff Complete? YES; Mean Corpuscular Hemoglobin 28.9 pg (27.0-31.0); Mean Corpuscular Volume 93.2 fL (78.0-98.0); Mean Platelet Volume 9.7 fL (7.4-10.4); Monocytes 7 % (0-10); Neutrophil 75 % (42-75); Platelet Count 202 thou/uL (130-400); Platelet Morphology Comment Appears Adequate; RBC Distribution Width 16.4 % (11.5-14.5); Red Blood Cell (RBC) Count 3.98 mill/uL (4.70-6.10); White Blood Cell (WBC) Count 23.2 thou/uL (4.8-10.8)
[2021-04-25 06:18] LABS: Anion Gap 19 mmol/L (10-20); BUN (Urea Nitrogen) 89 mg/dL (8.4-25.7); Calc. Creatinine Clearance 44 mL/min (70-130); Calcium 8.1 mg/dL (7.8-10.44); Carbon Dioxide 20 mmol/L (23-31); Chloride 105 mmol/L (98-107); Glucose 188 mg/dL (83-110); Potassium 3.1 mmol/L (3.5-5.1); Sodium 141 mmol/L (136-145)
[2021-04-25] MEDS ORDERED: Potassium Phosphate 15 MMOL in Sodium Chloride 0.9% 100 ML IVPB SCH (09:00)
[2021-04-25] MEDS: Ascorbic Acid 500 mg Chewable Tablet PO SCH (09:52)
[2021-04-25] MEDS: Dexamethasone 10 MG/ML VIAL SLOW IVP SCH (09:52)
[2021-04-25] MEDS: FLUoxetine HCl 10 MG CAP PO SCH (09:53)
[2021-04-25] MEDS: Meropenem 1 GM in Sodium Chloride 0.9% 100 ML IVPB SCH ×2 (09:54→21:17)
[2021-04-25] MEDS: Zinc Sulfate 220 MG CAP PO SCH (09:54)
[2021-04-25] MEDS ORDERED: Vancomycin 1 GM in Premix Bag 1 BAG IVPB SCH (15:00)
[2021-04-25] MEDS: D5W-AA 4.25% with LYTES 1,000 ML IV SCH ×2 (17:06→22:29)
[2021-04-25] MEDS: Bisacodyl 10 MG SUPP PR SCH (21:17)
[2021-04-25] MEDS: Atorvastatin Calcium 40 MG TAB PO SCH (21:18)
[2021-04-25] MEDS: Terazosin HCl 5 MG CAP PO SCH (21:18)
[2021-04-25] MEDS: Donepezil HCl 10 MG TAB PO SCH (21:18)
[2021-04-25] MEDS: Amiodarone 200 MG TAB PO SCH (21:18)
[2021-04-26] MEDS ORDERED: Acetaminophen 650 MG Suppository PR PRN (01:06)
[2021-04-26] MEDS: Pantoprazole 40 MG VIAL IVP SCH ×2 (01:48→14:38)
[2021-04-26] MEDS: D5W-AA 4.25% with LYTES 1,000 ML IV SCH ×2 (05:14→21:18)
[2021-04-26 06:01] LABS: Albumin 2.1 g/dL (3.4-4.8); Anion Gap 19 mmol/L (10-20); BUN (Urea Nitrogen) 87 mg/dL (8.4-25.7); BUN/Creatinine Ratio 52.73; Calc. Creatinine Clearance 44 mL/min (70-130); Calcium 8.1 mg/dL (7.8-10.44); Carbon Dioxide 23 mmol/L (23-31); Chloride 108 mmol/L (98-107); Glucose 180 mg/dL (83-110); Magnesium 2.2 mg/dL (1.6-2.6); Phosphorus 4.3 mg/dL (2.3-4.7); Potassium 3.5 mmol/L (3.5-5.1); Sodium 146 mmol/L (136-145)
[2021-04-26 06:13] LABS: Band 8 % (5-11); Hemoglobin 11.7 g/dL (14.0-18.0); Lymphocytes 6 % (21-51); MDiff Complete? YES; Mean Corpuscular HGB CONC 31.4 g/dL (32.0-36.0); Mean Corpuscular Hemoglobin 28.5 pg (27.0-31.0); Mean Corpuscular Volume 90.8 fL (78.0-98.0); Mean Platelet Volume 9.7 fL (7.4-10.4); Monocytes 2 % (0-10); Neutrophil 84 % (42-75); Platelet Count 173 thou/uL (130-400); RBC Distribution Width 16.4 % (11.5-14.5); White Blood Cell (WBC) Count 18.1 thou/uL (4.8-10.8)
[2021-04-26] MEDS ORDERED: Amiodarone 150 MG in Dextrose 5% in Water 100 ML IVPB SCH (09:15)
[2021-04-26] MEDS: Meropenem 1 GM in Sodium Chloride 0.9% 100 ML IVPB SCH ×2 (09:29→21:18)
[2021-04-26] MEDS: Zinc Sulfate 220 MG CAP PO SCH (09:30)
[2021-04-26] MEDS: Ascorbic Acid 500 mg Chewable Tablet PO SCH (09:30)
[2021-04-26] MEDS: FLUoxetine HCl 10 MG CAP PO SCH (09:30)
[2021-04-26] MEDS: Amiodarone 200 MG TAB PO SCH (12:08)
[2021-04-26] MEDS: Potassium Chloride 10 MEQ in Premix Bag 1 BAG IVPB SCH ×2 (14:37→18:05)
[2021-04-26] MEDS: Amiodarone 450 MG in Dextrose 5% in Water 250 ML IVPB SCH (14:37)
[2021-04-26] MEDS: Sodium Bicarbonate 150 MEQ in Dextrose 5% in Water 1,000 ML IV SCH (14:38)
[2021-04-26] MEDS: Bisacodyl 10 MG SUPP PR SCH (21:01)
[2021-04-26] MEDS: Atorvastatin Calcium 40 MG TAB PO SCH (21:01)
[2021-04-26] MEDS: Donepezil HCl 10 MG TAB PO SCH (21:01)
[2021-04-26] MEDS: Terazosin HCl 5 MG CAP PO SCH (21:01)
[2021-04-27] MEDS: Amiodarone 450 MG in Dextrose 5% in Water 250 ML IVPB SCH ×2 (00:16→16:07)
[2021-04-27] MEDS: Pantoprazole 40 MG VIAL IVP SCH ×2 (03:41→14:43)
[2021-04-27 07:18] LABS: Albumin 1.9 g/dL (3.4-4.8); Anion Gap 17 mmol/L (10-20); BUN (Urea Nitrogen) 77 mg/dL (8.4-25.7); BUN/Creatinine Ratio 58.33; Calc. Creatinine Clearance 54 mL/min (70-130); Calcium 8.3 mg/dL (7.8-10.44); Carbon Dioxide 27 mmol/L (23-31); Chloride 105 mmol/L (98-107); Glucose 258 mg/dL (83-110); Phosphorus 3.5 mg/dL (2.3-4.7); Sodium 146 mmol/L (136-145)
[2021-04-27] MEDS: Sodium Bicarbonate 150 MEQ in Dextrose 5% in Water 1,000 ML IV SCH (08:45)
[2021-04-27] MEDS: Ascorbic Acid 500 mg Chewable Tablet PO SCH (08:46)
[2021-04-27] MEDS: Zinc Sulfate 220 MG CAP PO SCH (08:46)
[2021-04-27] MEDS: FLUoxetine HCl 10 MG CAP PO SCH (08:46)
[2021-04-27] MEDS: Meropenem 1 GM in Sodium Chloride 0.9% 100 ML IVPB SCH ×2 (08:46→20:49)
[2021-04-27] MEDS: Potassium Chloride 20 MEQ in Premix Bag 1 BAG IVPB SCH ×3 (09:44→14:42)
[2021-04-27] MEDS ORDERED: Sodium Bicarbonate 150 MEQ in Dextrose 5% in Water 1,000 ML IV SCH (09:59)
[2021-04-27] MEDS: Albumin 25% 25 GM/100 ML BOT IVPB SCH ×2 (12:49→19:05)
[2021-04-27] MEDS ORDERED: Haloperidol Lactate 5 MG/ML VIAL SLOW IVP PRN (13:10)
[2021-04-27] MEDS: Bisacodyl 10 MG SUPP PR SCH (20:50)
[2021-04-27] MEDS: Atorvastatin Calcium 40 MG TAB PO SCH (20:50)
[2021-04-27] MEDS: Donepezil HCl 10 MG TAB PO SCH (20:50)
[2021-04-27] MEDS: Terazosin HCl 5 MG CAP PO SCH (20:50)
[2021-04-27] MEDS: D5W-AA 4.25% with LYTES 1,000 ML IV SCH (22:15)
[2021-04-28] MEDS: Albumin 25% 25 GM/100 ML BOT IVPB SCH (01:56)
[2021-04-28] MEDS: Pantoprazole 40 MG VIAL IVP SCH ×2 (01:56→16:23)
[2021-04-28] MEDS: Amiodarone 450 MG in Dextrose 5% in Water 250 ML IVPB SCH ×2 (06:07→22:10)
[2021-04-28 07:13] LABS: Hemoglobin 10.1 g/dL (14.0-18.0); Mean Corpuscular Hemoglobin 28.4 pg (27.0-31.0); Mean Corpuscular Volume 91.7 fL (78.0-98.0); Mean Platelet Volume 9.7 fL (7.4-10.4); Platelet Count 130 thou/uL (130-400); RBC Distribution Width 16.7 % (11.5-14.5); Red Blood Cell (RBC) Count 3.55 mill/uL (4.70-6.10); White Blood Cell (WBC) Count 12.6 thou/uL (4.8-10.8)
[2021-04-28 07:25] LABS: Albumin 2.5 g/dL (3.4-4.8); Anion Gap 22 mmol/L (10-20); BUN (Urea Nitrogen) 65 mg/dL (8.4-25.7); BUN/Creatinine Ratio 59.09; Calc. Creatinine Clearance 65 mL/min (70-130); Calcium 8.6 mg/dL (7.8-10.44); Carbon Dioxide 21 mmol/L (23-31); Chloride 108 mmol/L (98-107); Glucose 219 mg/dL (83-110); Phosphorus 2.7 mg/dL (2.3-4.7); Potassium 3.8 mmol/L (3.5-5.1); Sodium 147 mmol/L (136-145)
[2021-04-28 09:43] LABS: Band 25 % (5-11); Eosinophils 2 % (0-10); Hypochromia SLIGHT = 6-15 cells (100X) (0-5/hpf); Lymphocytes 7 % (21-51); MDiff Complete? YES; Metamyelocyte 1 % (0-0); Monocytes 3 % (0-10); Neutrophil 61 % (42-75); Ovalocytes SLIGHT = 2-5 cells (100X) (0-1/hpf); Platelet Morphology Comment Appears Adequate; Polychromasia SLIGHT = 2-3 cells (100X) (0-2/hpf); Reactive Lymphocytes 1 % (0-10)
[2021-04-28] MEDS: Zinc Sulfate 220 MG CAP PO SCH (10:00)
[2021-04-28] MEDS: Ascorbic Acid 500 mg Chewable Tablet PO SCH (10:00)
[2021-04-28] MEDS: Meropenem 1 GM in Sodium Chloride 0.9% 100 ML IVPB SCH ×2 (10:00→18:18)
[2021-04-28] MEDS: FLUoxetine HCl 10 MG CAP PO SCH (10:00)
[2021-04-28] MEDS ORDERED: Sodium Chloride 0.9% 1,000 ML IV SCH (11:30)
[2021-04-28] MEDS: Donepezil HCl 10 MG TAB PO SCH (20:20)
[2021-04-28] MEDS: Atorvastatin Calcium 40 MG TAB PO SCH (20:20)
[2021-04-28] MEDS: Bisacodyl 10 MG SUPP PR SCH (20:20)
[2021-04-29] MEDS: Meropenem 1 GM in Sodium Chloride 0.9% 100 ML IVPB SCH ×3 (02:04→17:58)
[2021-04-29] MEDS: Pantoprazole 40 MG VIAL IVP SCH ×2 (02:04→17:58)
[2021-04-29] MEDS ORDERED: AA 4.25 %/CALCIUM/LYTES/D5W 2,000 ML IV SCH (06:30)
[2021-04-29 08:29] LABS: Hemoglobin 10.6 g/dL (14.0-18.0); Mean Corpuscular HGB CONC 31.5 g/dL (32.0-36.0); Mean Corpuscular Volume 91.9 fL (78.0-98.0); Platelet Count 122 thou/uL (130-400); RBC Distribution Width 16.6 % (11.5-14.5); Red Blood Cell (RBC) Count 3.67 mill/uL (4.70-6.10)
[2021-04-29 08:32] LABS: Anion Gap 14 mmol/L (10-20); BUN (Urea Nitrogen) 59 mg/dL (8.4-25.7); Calc. Creatinine Clearance 73 mL/min (70-130); Carbon Dioxide 30 mmol/L (23-31); Chloride 107 mmol/L (98-107); Potassium 3.4 mmol/L (3.5-5.1); Sodium 148 mmol/L (136-145)
[2021-04-29 08:33] LABS: Calcium 8.7 mg/dL (7.8-10.44); Glucose 217 mg/dL (83-110)
[2021-04-29] MEDS: Dextrose 5% in Water 1,000 ML IV SCH (09:30)
[2021-04-29] MEDS: Ascorbic Acid 500 mg Chewable Tablet PO SCH (09:30)
[2021-04-29] MEDS: FLUoxetine HCl 10 MG CAP PO SCH (09:31)
[2021-04-29] MEDS: Zinc Sulfate 220 MG CAP PO SCH (09:31)
[2021-04-29] MEDS ORDERED: Potassium Phosphate 30 MMOL in Sodium Chloride 0.9% 500 ML IVPB SCH (09:45)
[2021-04-29 10:01] LABS: Band 38 % (5-11); Elliptocytes SLIGHT = 2-5 cells (100X) (0-1/hpf); Lymphocytes 4 % (21-51); MDiff Complete? YES; Metamyelocyte 1 % (0-0); Monocytes 1 % (0-10); Neutrophil 56 % (42-75); Platelet Morphology Comment Appears Adequate; Polychromasia SLIGHT = 2-3 cells (100X) (0-2/hpf); RBC Morphology Normal
[2021-04-29] MEDS: Amiodarone 450 MG in Dextrose 5% in Water 250 ML IVPB SCH (14:58)
[2021-04-29] MEDS: Donepezil HCl 10 MG TAB PO SCH (20:45)
[2021-04-29] MEDS: Atorvastatin Calcium 40 MG TAB PO SCH (20:45)
[2021-04-29] MEDS: Bisacodyl 10 MG SUPP PR SCH (20:45)
[2021-04-30] MEDS: Meropenem 1 GM in Sodium Chloride 0.9% 100 ML IVPB SCH ×3 (03:04→17:43)
[2021-04-30] MEDS: Pantoprazole 40 MG VIAL IVP SCH ×2 (03:04→17:25)
[2021-04-30] MEDS: Dextrose 5% in Water 1,000 ML IV SCH (05:43)
[2021-04-30] MEDS: Amiodarone 450 MG in Dextrose 5% in Water 250 ML IVPB SCH ×2 (06:49→17:25)
[2021-04-30] MEDS: Ascorbic Acid 500 mg Chewable Tablet PO SCH (10:05)
[2021-04-30] MEDS: FLUoxetine HCl 10 MG CAP PO SCH (10:05)
[2021-04-30] MEDS: Zinc Sulfate 220 MG CAP PO SCH (10:06)
[2021-04-30] MEDS ORDERED: Fleet Enema 133 ML BOT FS SCH (10:30)
[2021-04-30 12:44] LABS: Mean Corpuscular HGB CONC 30.5 g/dL (32.0-36.0); Mean Corpuscular Hemoglobin 28.9 pg (27.0-31.0); Mean Corpuscular Volume 94.7 fL (78.0-98.0); Mean Platelet Volume 10.5 fL (7.4-10.4); Platelet Count 82 thou/uL (130-400); Red Blood Cell (RBC) Count 3.82 mill/uL (4.70-6.10); White Blood Cell (WBC) Count 18.6 thou/uL (4.8-10.8)
[2021-04-30] MEDS: HumaLOG 300 UNITS/3 ML VIAL SC PRN ×2 (12:47→17:48)
[2021-04-30 13:01] LABS: Anisocytosis SLIGHT = 6-15 cells (100X) (0-5/hpf); Band 11 % (5-11); Burr Cells SLIGHT = 2-5 cells (100X) (0-1/hpf); Elliptocytes SLIGHT = 2-5 cells (100X) (0-1/hpf); Eosinophils 1 % (0-10); Lymphocytes 4 % (21-51); MDiff Complete? YES; Monocytes 2 % (0-10); Neutrophil 81 % (42-75); Ovalocytes SLIGHT = 2-5 cells (100X) (0-1/hpf); Platelet Morphology Comment Appears Decreased; Poikilocytosis SLIGHT = 6-15 cells (100X) (0-5/hpf); Polychromasia SLIGHT = 2-3 cells (100X) (0-2/hpf); Reactive Lymphocytes 1 % (0-10)
[2021-04-30 13:12] LABS: Anion Gap 18 mmol/L (10-20); BUN (Urea Nitrogen) 61 mg/dL (8.4-25.7); Calc. Creatinine Clearance 77 mL/min (70-130); Calcium 8.4 mg/dL (7.8-10.44); Carbon Dioxide 24 mmol/L (23-31); Chloride 107 mmol/L (98-107); Glucose 217 mg/dL (83-110); Phosphorus 3.5 mg/dL (2.3-4.7); Sodium 145 mmol/L (136-145)
[2021-04-30 13:35] LABS: Magnesium 1.8 mg/dL (1.6-2.6)
[2021-04-30] MEDS ORDERED: D5W-AA 4.25% with LYTES 1,000 ML IV SCH (17:15)
[2021-04-30] MEDS: Atorvastatin Calcium 40 MG TAB PO SCH (20:44)
[2021-04-30] MEDS: Bisacodyl 10 MG SUPP PR SCH (20:45)
[2021-04-30] MEDS: Donepezil HCl 10 MG TAB PO SCH (20:45)
[2021-05-01] MEDS: Dextrose 5% in Water 1,000 ML IV SCH (01:11)
[2021-05-01] MEDS: Meropenem 1 GM in Sodium Chloride 0.9% 100 ML IVPB SCH ×3 (01:55→18:26)
[2021-05-01] MEDS: Pantoprazole 40 MG VIAL IVP SCH ×2 (01:56→16:39)
[2021-05-01 06:18] LABS: Albumin 1.9 g/dL (3.4-4.8); Anion Gap 17 mmol/L (10-20); BUN (Urea Nitrogen) 61 mg/dL (8.4-25.7); BUN/Creatinine Ratio 69.32; Calc. Creatinine Clearance 87 mL/min (70-130); Calcium 8.3 mg/dL (7.8-10.44); Carbon Dioxide 25 mmol/L (23-31); Chloride 105 mmol/L (98-107); Glucose 200 mg/dL (83-110); Magnesium 1.8 mg/dL (1.6-2.6); Phosphorus 3.1 mg/dL (2.3-4.7); Potassium 3.6 mmol/L (3.5-5.1); Sodium 143 mmol/L (136-145)
[2021-05-01] MEDS: Amiodarone 450 MG in Dextrose 5% in Water 250 ML IVPB SCH ×2 (08:42→23:54)
[2021-05-01 10:07] LABS: Anion Gap 18 mmol/L (10-20); BUN (Urea Nitrogen) 58 mg/dL (8.4-25.7); Calc. Creatinine Clearance 85 mL/min (70-130); Calcium 8.3 mg/dL (7.8-10.44); Carbon Dioxide 24 mmol/L (23-31); Chloride 104 mmol/L (98-107); Glucose 196 mg/dL (83-110); Hemoglobin 11.4 g/dL (14.0-18.0); Mean Corpuscular HGB CONC 31.9 g/dL (32.0-36.0); Mean Corpuscular Hemoglobin 28.9 pg (27.0-31.0); Mean Corpuscular Volume 90.7 fL (78.0-98.0); Mean Platelet Volume 10.1 fL (7.4-10.4); Platelet Count 87 thou/uL (130-400); Potassium 3.6 mmol/L (3.5-5.1); RBC Distribution Width 16.6 % (11.5-14.5); Red Blood Cell (RBC) Count 3.95 mill/uL (4.70-6.10); Sodium 142 mmol/L (136-145); White Blood Cell (WBC) Count 19.9 thou/uL (4.8-10.8)
[2021-05-01 10:13] LABS: Anisocytosis SLIGHT = 6-15 cells (100X) (0-5/hpf); Band 30 % (5-11); Eosinophils 1 % (0-10); Lymphocytes 2 % (21-51); MDiff Complete? YES; Monocytes 4 % (0-10); Neutrophil 60 % (42-75); Platelet Morphology Comment Appears Decreased; Polychromasia SLIGHT = 2-3 cells (100X) (0-2/hpf); Reactive Lymphocytes 3 % (0-10)
[2021-05-01] MEDS: Zinc Sulfate 220 MG CAP PO SCH (10:46)
[2021-05-01] MEDS: Ascorbic Acid 500 mg Chewable Tablet PO SCH (10:46)
[2021-05-01] MEDS: FLUoxetine HCl 10 MG CAP PO SCH (10:46)
[2021-05-01] MEDS: Bisacodyl 10 MG SUPP PR SCH (20:28)
[2021-05-01] MEDS: Donepezil HCl 10 MG TAB PO SCH (20:30)
[2021-05-01] MEDS: Atorvastatin Calcium 40 MG TAB PO SCH (20:30)
[2021-05-02] MEDS: Meropenem 1 GM in Sodium Chloride 0.9% 100 ML IVPB SCH ×3 (01:36→18:30)
[2021-05-02] MEDS: Pantoprazole 40 MG VIAL IVP SCH ×2 (01:36→14:49)
[2021-05-02 06:59] LABS: Anion Gap 18 mmol/L (10-20); BUN (Urea Nitrogen) 56 mg/dL (8.4-25.7); Calc. Creatinine Clearance 82 mL/min (70-130); Calcium 8.5 mg/dL (7.8-10.44); Carbon Dioxide 25 mmol/L (23-31); Chloride 106 mmol/L (98-107); Glucose 186 mg/dL (83-110); Potassium 3.8 mmol/L (3.5-5.1); Sodium 145 mmol/L (136-145)
[2021-05-02 08:00] LABS: Mean Corpuscular HGB CONC 32.1 g/dL (32.0-36.0); Mean Corpuscular Hemoglobin 29.1 pg (27.0-31.0); Mean Corpuscular Volume 90.6 fL (78.0-98.0); Mean Platelet Volume 9.7 fL (7.4-10.4); Platelet Count 80 thou/uL (130-400); RBC Distribution Width 16.8 % (11.5-14.5); Red Blood Cell (RBC) Count 3.78 mill/uL (4.70-6.10); White Blood Cell (WBC) Count 16.3 thou/uL (4.8-10.8)
[2021-05-02 09:12] VITALS: BMI 29.4
[2021-05-02] MEDS ORDERED: Dextrose 5% w/ 20 mEq KCl 1,000 ML IV SCH (09:15)
[2021-05-02] MEDS: Ascorbic Acid 500 mg Chewable Tablet PO SCH (10:23)
[2021-05-02] MEDS: FLUoxetine HCl 10 MG CAP PO SCH (10:24)
[2021-05-02] MEDS: Zinc Sulfate 220 MG CAP PO SCH (10:25)
[2021-05-02 11:49] LABS: Band 23 % (5-11); Lymphocytes 7 % (21-51); MDiff Complete? YES; Metamyelocyte 1 % (0-0); Myelocyte 2 % (0-0); Neutrophil 66 % (42-75); Platelet Morphology Comment Appears Decreased; Polychromasia SLIGHT = 2-3 cells (100X) (0-2/hpf); Reactive Lymphocytes 1 % (0-10); Vacuoles SLIGHT
[2021-05-02] MEDS: Amiodarone 450 MG in Dextrose 5% in Water 250 ML IVPB SCH (14:48)
[2021-05-02] MEDS: Dextrose 5% w/ 20 mEq KCl 1,000 ML IV SCH (14:49)
[2021-05-02] MEDS: HumaLOG 300 UNITS/3 ML VIAL SC PRN (18:23)
[2021-05-02] MEDS: Atorvastatin Calcium 40 MG TAB PO SCH (21:43)
[2021-05-02] MEDS: Donepezil HCl 10 MG TAB PO SCH (21:43)
[2021-05-02] MEDS: Amiodarone 200 MG TAB PO SCH (21:45)
[2021-05-02] MEDS: Bisacodyl 10 MG SUPP PR SCH (21:45)
[2021-05-03] MEDS: Meropenem 1 GM in Sodium Chloride 0.9% 100 ML IVPB SCH ×2 (03:36→11:04)
[2021-05-03] MEDS: Pantoprazole 40 MG VIAL IVP SCH ×2 (03:36→16:35)
[2021-05-03 05:36] LABS: Band 16 % (5-11); Hemoglobin 10.4 g/dL (14.0-18.0); Hypochromia SLIGHT = 6-15 cells (100X) (0-5/hpf); Lymphocytes 10 % (21-51); MDiff Complete? YES; Mean Corpuscular HGB CONC 31.8 g/dL (32.0-36.0); Mean Corpuscular Hemoglobin 29.1 pg (27.0-31.0); Mean Corpuscular Volume 91.4 fL (78.0-98.0); Mean Platelet Volume 10.5 fL (7.4-10.4); Neutrophil 74 % (42-75); Platelet Count 72 thou/uL (130-400); Platelet Morphology Comment Appears Decreased; RBC Distribution Width 16.6 % (11.5-14.5); Red Blood Cell (RBC) Count 3.59 mill/uL (4.70-6.10)
[2021-05-03 05:43] LABS: Anion Gap 15 mmol/L (10-20); BUN (Urea Nitrogen) 60 mg/dL (8.4-25.7); Calc. Creatinine Clearance 75 mL/min (70-130); Calcium 8.2 mg/dL (7.8-10.44); Carbon Dioxide 26 mmol/L (23-31); Chloride 107 mmol/L (98-107); Glucose 288 mg/dL (83-110); Potassium 3.8 mmol/L (3.5-5.1); Sodium 144 mmol/L (136-145)
[2021-05-03] MEDS: HumaLOG 300 UNITS/3 ML VIAL SC PRN ×3 (06:47→16:40)
[2021-05-03] MEDS ORDERED: Dextrose 5 %-0.45 % NaCl 1,000 ML IV SCH ×2 (09:30→12:15)
[2021-05-03] MEDS: FLUoxetine HCl 10 MG CAP PO SCH (11:04)
[2021-05-03] MEDS: Amiodarone 200 MG TAB PO SCH (11:04)
[2021-05-03] MEDS: Ascorbic Acid 500 mg Chewable Tablet PO SCH (11:04)
[2021-05-03] MEDS: Dextrose 5% w/ 20 mEq KCl 1,000 ML IV SCH (16:23)
[2021-05-03 17:26] VITALS: BP 99/57; TEMP 97.3
[2021-05-16] MEDS ORDERED: Amiodarone 200 MG TAB PO SCH (09:00)
[2021-05-30] MEDS ORDERED: Amiodarone 200 MG TAB PO SCH (09:00)
== END 2021-05-03 18:17 | disposition hospice, inpatient (51) | DRG 871 ==
LOC: ERS 11:41 → ERHOLD 16:34 → 2SW 04-20 14:50
PROVIDERS: ADMIT Internal Medicine; ATTEND Internal Medicine
PROC: 8E0ZXY6 Isolation (ICD-10-PCS; principal; 2021-04-19)
PROC: 0T9B70Z Drainage of Bladder with Drainage Device, Via Natural or Artificial Opening (ICD-10-PCS; 2021-04-19)
PROC: 0DH67UZ Insertion of Feeding Device into Stomach, Via Natural or Artificial Opening (ICD-10-PCS; 2021-04-25)
PROC: 02HV33Z Insertion of Infusion Device into Superior Vena Cava, Percutaneous Approach (ICD-10-PCS; 2021-04-26)
PROC: B548ZZA Ultrasonography of Superior Vena Cava, Guidance (ICD-10-PCS; 2021-04-26)
PROC: 02H633Z Insertion of Infusion Device into Right Atrium, Percutaneous Approach (ICD-10-PCS; 2021-04-26)
DX: A41.89 Other specified sepsis (principal); J96.01 Acute respiratory failure with hypoxia; U07.1 COVID-19; J12.82 Pneumonia due to coronavirus disease 2019; N17.9 Acute kidney failure, unspecified; K92.0 Hematemesis; E87.1 Hypo-osmolality and hyponatremia; I47.2 Ventricular tachycardia; E87.2 Acidosis; I50.32 Chronic diastolic (congestive) heart failure; I13.0 Hypertensive heart and chronic kidney disease with heart failure and stage 1 through stage 4 chronic kidney disease, or unspecified chronic kidney disease; I42.9 Cardiomyopathy, unspecified; E87.0 Hyperosmolality and hypernatremia; K56.7 Ileus, unspecified; K56.600 Partial intestinal obstruction, unspecified as to cause; F02.81 Dementia in other diseases classified elsewhere, unspecified severity, with behavioral disturbance; Z66 Do not resuscitate; Z51.5 Encounter for palliative care; Z78.1 Physical restraint status; E78.5 Hyperlipidemia, unspecified; N13.9 Obstructive and reflux uropathy, unspecified; N40.0 Benign prostatic hyperplasia without lower urinary tract symptoms; E86.1 Hypovolemia; E88.09 Other disorders of plasma-protein metabolism, not elsewhere classified; E11.22 Type 2 diabetes mellitus with diabetic chronic kidney disease; R33.9 Retention of urine, unspecified; D72.829 Elevated white blood cell count, unspecified; E87.5 Hyperkalemia; E83.42 Hypomagnesemia; E87.6 Hypokalemia; E78.00 Pure hypercholesterolemia, unspecified; T38.0X5A Adverse effect of glucocorticoids and synthetic analogues, initial encounter; N18.2 Chronic kidney disease, stage 2 (mild); R13.12 Dysphagia, oropharyngeal phase; E86.9 Volume depletion, unspecified; K59.00 Constipation, unspecified; Z96.641 Presence of right artificial hip joint; Z79.82 Long term (current) use of aspirin; Z79.84 Long term (current) use of oral hypoglycemic drugs; Z79.899 Other long term (current) drug therapy; Z79.52 Long term (current) use of systemic steroids; Z95.0 Presence of cardiac pacemaker; Z87.891 Personal history of nicotine dependence
CPT/HCPCS: 36415; 36416; 51702; 71045; 74018; 74176; 76700; 80048; 80053; 80069; 80202; 81003; 81015; 82040; 82274; 82553; 82570; 83735; 83930; 83935; 84100; 84145; 84156; 84300; 84484; 84540; 85025; 85379; 85610; 85730; 86140; 86850; 86900; 86901; 87040; 93005; 94760; 96365; 96366; 96375; C9113; J0282; J0692; J0696; J1100; J2185; J3370; J3475; J3480; J3490; J7030; J7042; J7050; J7070; J7120; P9047

== ENCOUNTER 2021-05-03 18:28 | Inpatient (IN) | payer OTHER ==
[2021-05-03] MEDS ORDERED: Milk Of Magnesia 30 ML UDCUP PO PRN (19:30)
[2021-05-03] MEDS ORDERED: Ondansetron ODT 4 MG TAB PO PRN (19:30)
[2021-05-03] MEDS ORDERED: Zolpidem Tartrate 5 MG TAB PO PRN (19:30)
[2021-05-03] MEDS ORDERED: Morphine 10 MG/0.5 ML ORAL SYRINGE SL PRN (19:30)
[2021-05-03] MEDS ORDERED: Haloperidol Lactate 5 MG/ML VIAL SLOW IVP PRN (19:30)
[2021-05-03] MEDS ORDERED: Hyoscyamine Sulfate SL 0.125 mg Tablet SL PRN (19:30)
[2021-05-03] MEDS ORDERED: Scopolamine 1.5 mg/72 hour Patch TOP PRN (19:30)
[2021-05-03] MEDS ORDERED: Acetaminophen 650 MG Suppository PR PRN (19:30)
[2021-05-03] MEDS ORDERED: Ondansetron PF 4 MG/2 ML Vial IVP PRN (19:30)
[2021-05-03] MEDS ORDERED: Promethazine HCl 25 MG SUPP PR PRN (19:30)
[2021-05-03] MEDS ORDERED: Senokot 8.6 MG TAB PO PRN (19:30)
[2021-05-03] MEDS ORDERED: Loperamide HCl 2 MG CAP PO PRN (19:30)
[2021-05-03 22:54] VITALS: BMI 29.8
[2021-05-03] MEDS: Morphine 4 MG/ML VIAL SLOW IVP PRN (22:54)
[2021-05-04] MEDS: Morphine 4 MG/ML VIAL SLOW IVP PRN ×2 (08:20→09:48)
[2021-05-04] MEDS: Lorazepam 2 MG/ML VIAL SLOW IVP PRN ×2 (09:57→22:46)
[2021-05-04] MEDS ORDERED: Lorazepam 1 MG TAB SL PRN (12:54)
[2021-05-04] MEDS: Lorazepam 1 MG TAB SL SCH ×3 (14:39→22:46)
[2021-05-05] MEDS: Lorazepam 1 MG TAB SL SCH ×3 (06:39→22:45)
[2021-05-05] MEDS: Lorazepam 2 MG/ML VIAL SLOW IVP PRN ×2 (11:54→22:45)
[2021-05-06] MEDS: Lorazepam 2 MG/ML VIAL SLOW IVP PRN (08:06)
[2021-05-06] MEDS: Lorazepam 1 MG TAB SL SCH (08:07)
[2021-05-06 10:14] VITALS: BP 110/71; TEMP 98.4
== END 2021-05-06 10:40 | disposition hospice, inpatient (51) | DRG 951 ==
LOC: 2SW 18:28 → MSONC 05-04 12:35
PROVIDERS: ADMIT Family Medicine; ATTEND Family Medicine
DX: Z51.5 Encounter for palliative care (principal); Z66 Do not resuscitate; L89.153 Pressure ulcer of sacral region, stage 3; F03.91 Unspecified dementia, unspecified severity, with behavioral disturbance; I50.9 Heart failure, unspecified; N28.9 Disorder of kidney and ureter, unspecified; Z78.1 Physical restraint status; Z74.01 Bed confinement status; Z86.16 Personal history of COVID-19
CPT/HCPCS: 36416; J2060; J2270